=== PATIENT | female | born 1965 | race Caucasian/White ===

== ENCOUNTER 2016-03-14 09:52 | Emergency (ER) | payer SELFPAY ==
[2016-03-14 11:03] VITALS: TEMP 97.9; BMI 29.0
[2016-03-14 13:51] VITALS: BP 137/69; PULSE 98
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
== END 2016-03-14 14:14 | disposition home or self-care (01) ==
LOC: EDMC 09:52
DX: Z48.00 Encounter for change or removal of nonsurgical wound dressing (principal); E11.9 Type 2 diabetes mellitus without complications; Z79.4 Long term (current) use of insulin
CPT/HCPCS: 99282